=== PATIENT | female | born 1965 | race Caucasian/White ===

== ENCOUNTER → 2017-07-19 | Outpatient (CLI) | payer OTHER ==
--- NOTE | 2017-07-19 15:27 | KCIC ---
Bilateral digital screening mammograms: Reason for examination: Routine screening. Comparison is made to previous studies dated 09/09/2010 and 08/06/2008. The skin and nipples show no abnormalities. No abnormal axillary lymph nodes are seen. The breast parenchyma is extremely dense. (Breast density: Category D) There appears to be some focally dense nodularity at the 2:00 C position of the left breast. Further evaluation with coned compression views and ultrasound is recommended. There are no other dominant masses, suspicious calcifications or architectural distortion. A few benign calcifications are seen. Impression: Focal increased nodular density at the 2:00 C position of the left breast. Recommend further evaluation with coned compression views and ultrasound. Your patient's mammogram demonstrates that she has dense breast tissue (breast density category C or D), which could hide abnormalities, and if she has other risk factors for breast cancer that have been identified, she might benefit from supplemental screening tests that may be suggested by you as her ordering physician. Dense breast tissue, in and of itself, is a relatively common condition. Therefore, this information is not provided to cause undue concern, but rather to raise your awareness and to promote discussion with your patient regarding the presence of other risk factors, in addition to dense breast tissue. Your patient's mammography results will be sent to her. BI-RADS Category 0: Incomplete. Additional imaging is recommended. "Our facility is accredited by the [employer] Mammography [employer]." This patient's information has been entered into a reminder system for the patient to be notified with the results of her examination and a target date for the next mammogram. Electronically signed by: Sara Dutta MD (07/19/2017 3:24 PM) [id number]
== END | disposition home or self-care (01) ==
LOC: KCIC MAMMO 11:10
PROVIDERS: ATTEND Obstetrics & Gynecology
DX: Z12.31 Encounter for screening mammogram for malignant neoplasm of breast (principal)
CPT/HCPCS: G0202; 77067

== ENCOUNTER → 2017-08-02 | Outpatient (CLI) | payer OTHER ==
--- NOTE | 2017-08-02 13:24 | KCIC ---
Diagnostic digital mammograms left breast: Reason for examination: Abnormality on screening mammogram. Comparison is made to previous mammographic exam dated 07/19/2017. Additional coned compression views in CC and oblique projections were obtained. With these additional views, there are 2 small nodules consistent with intramammary lymph nodes adjacent to the pectoralis muscle. The area of nodularity suggested on screening examination is not identified but could be obscured by the dense fibroglandular tissue in the upper outer quadrant. Further evaluation with ultrasound will follow. IMPRESSION: No suspicious-appearing abnormality seen with the additional views but ultrasound will follow. BI-RADS Category 0: Incomplete. Ultrasound to follow. Left breast ultrasound: Ultrasound examination was performed with attention to the upper outer quadrant and left axilla. In the upper outer quadrant at the 2:00 position 9 cm from the nipple, there is a small 3.2 mm hypoechoic lesion consistent with some focal fibrocystic change. There is also a hypoechoic circumscribed lesion at the 1:30 position 10 cm from the nipple measuring 9.1 mm in greatest dimension also probably representing some benign fibrocystic change. No suspicious-appearing lesions are seen. No abnormal appearing lymph nodes are seen in the axilla. IMPRESSION: Small circumscribed lesions at the 1:30 and 2:00 positions which probably represent benign fibrocystic changes. No suspicious abnormalities are seen. Recommend reevaluation with ultrasound in 3 months to verify stability of these findings. BI-RADS Category 3: Probably Benign. "Our facility is accredited by the [employer] Mammography [employer]." This patient's information has been entered into a reminder system for the patient to be notified with the results of her examination and a target date for the next mammogram. Electronically signed by: Sara Dutta MD (08/02/2017 1:21 PM) [place] [id number]
== END | disposition home or self-care (01) ==
LOC: KCIC MAMMO 08:15
PROVIDERS: ATTEND Family Medicine
DX: N63 Unspecified lump in breast (principal)
CPT/HCPCS: 76641; G0206; 77065

== ENCOUNTER → 2017-11-01 | Outpatient (CLI) | payer OTHER ==
--- NOTE | 2017-11-01 12:44 | RAD ---
Ultrasound of the left breast 11/01/2017 Clinical history: Fibrocystic changes seen within the left breast on previous left breast ultrasound. 3 month follow-up was recommended. Technique: A Real-time ultrasound examination of the left breast at the 2:00 position was performed. Multiple images were obtained. Findings: Within the left breast at the 2:00 position 2 oval-shaped anechoic areas are seen which measure 4 mm and 3 mm in size which are consistent with cysts. The larger cyst has decreased in size since the previous examination where it measured 9 mm in size. The smaller cyst is not significantly changed. No new solid mass is seen. A 2 cm lymph node is seen within the left axilla which is unchanged. Impression: Small cysts are seen within the left breast at the 2:00 position. The larger of the 2 has decreased in size since the previous examination. No new abnormality is seen. I would recharacterize the patient's mammograms as a BI-RADS Category 2 benign findings with a recommendation for routine yearly screening mammography for follow-up. Patient information was entered into the reminder system with a target date for the patient's next screening mammogram of 07/19/2018.
== END | disposition home or self-care (01) ==
LOC: KCIC US 10:45
PROVIDERS: ATTEND Family Medicine
DX: N60.02 Solitary cyst of left breast (principal)
CPT/HCPCS: 76641

== ENCOUNTER → 2019-02-27 | Outpatient (CLI) | payer OTHER ==
--- NOTE | 2019-02-27 13:49 | KCIC ---
Left lower extremity arterial duplex ultrasound 02/27/2019 INDICATION: Left leg pain. History of iliac artery aneurysm, left-sided Discussion: Ultrasound evaluation of the major arteries of the left lower extremity were performed including color Doppler imaging spectral analysis Left common femoral artery is patent with normal waveforms. Mild elevation of velocities up to 177 cm/s are seen which is nonspecific. Profunda artery appears grossly patent proximally. Proximal left SFA is patent. Distal left SFA is patent. Popliteal artery appears to be widely patent. The anterior tibial, posterior tibial, dorsalis pedis artery appear grossly patent. Limited visualization of the aortic bifurcation demonstrates what appears to be grossly normal caliber of the bilateral common iliac arteries which appear to be patent. Some atherosclerotic vascular calcification within the more distal iliac artery is seen on the left. IMPRESSION: 1.Some mild areas of nonspecific increased velocity within the left common femoral artery and superficial femoral artery. Scattered areas of diffuse atherosclerotic vascular disease are seen. Significant hemodynamically significant stenosis is not felt to be present. 2. Note that evaluation of the iliac arteries is limited by ultrasound. Similar nonspecific elevation of velocities without corresponding visual stenoses are seen. If further evaluation for iliac artery aneurysm or stenosis is desired, CT angiography offers more sensitive evaluation. Electronically signed by: Daren Otoole MD (02/27/2019 1:46 PM) [id number]
== END | disposition home or self-care (01) ==
LOC: KCIC US 11:59
PROVIDERS: ATTEND Family Medicine
DX: I70.292 Other atherosclerosis of native arteries of extremities, left leg (principal)
CPT/HCPCS: 93926